=== PATIENT | female | born 1950 | race Caucasian/White ===

== ENCOUNTER 2023-04-07 08:53 | Outpatient (RCR) | payer MEDICARE, OTHER, SELFPAY | END 2023-04-07 23:59 | disposition home or self-care (01) | LOC: RPT 08:53 | PROVIDERS: ATTENDING PHYSICIAN Surgery Plastic and Reconstructive Surgery; FAMILY PHYSICIAN Internal Medicine | DX: Z48.817 Encounter for surgical aftercare following surgery on the skin and subcutaneous tissue (principal); R60.0 Localized edema; Z98.890 Other specified postprocedural states | CPT/HCPCS: 97140; 97162; 97535 ==

== ENCOUNTER 2023-05-12 10:13 | Outpatient (RCR) | payer MEDICARE, OTHER, SELFPAY | END 2023-05-12 23:59 | disposition home or self-care (01) | LOC: RPT 10:13 | PROVIDERS: ATTENDING PHYSICIAN Surgery Plastic and Reconstructive Surgery; FAMILY PHYSICIAN Internal Medicine | DX: R60.0 Localized edema (principal); Z73.6 Limitation of activities due to disability; Z98.890 Other specified postprocedural states | CPT/HCPCS: 97140; 97535 ==

== ENCOUNTER 2023-05-20 11:47 | Outpatient (RCR) | payer MEDICARE, OTHER, SELFPAY | END 2023-05-20 14:13 | disposition home or self-care (01) | LOC: RPT 11:47 | PROVIDERS: ATTENDING PHYSICIAN Surgery Plastic and Reconstructive Surgery; FAMILY PHYSICIAN Internal Medicine | DX: R60.0 Localized edema (principal); Z73.6 Limitation of activities due to disability; Z98.890 Other specified postprocedural states | CPT/HCPCS: 97140 ==

== ENCOUNTER → 2023-06-11 09:54 | Outpatient (REF) | payer MEDICARE, OTHER, SELFPAY | LOC: WDC 09:54 | PROVIDERS: ATTENDING PHYSICIAN Internal Medicine | DX: N63.12 Unspecified lump in the right breast, upper inner quadrant (principal); Z98.890 Other specified postprocedural states | CPT/HCPCS: 76642; 77062; 77066 ==

== ENCOUNTER 2023-07-10 09:46 | Outpatient (RCR) | payer MEDICARE, OTHER, SELFPAY | END 2023-07-10 23:59 | disposition home or self-care (01) | LOC: RPT 09:46 | PROVIDERS: ATTENDING PHYSICIAN Orthopaedic Surgery; FAMILY PHYSICIAN Internal Medicine | DX: M47.816 Spondylosis without myelopathy or radiculopathy, lumbar region (principal); Z73.6 Limitation of activities due to disability; R26.2 Difficulty in walking, not elsewhere classified; M62.81 Muscle weakness (generalized); Z96.641 Presence of right artificial hip joint | CPT/HCPCS: 97010; 97110; 97140; 97162; 97530 ==

== ENCOUNTER 2023-07-28 10:53 | Outpatient (RCR) | payer MEDICARE, OTHER, SELFPAY | END 2023-07-28 23:59 | disposition home or self-care (01) | LOC: RPT 10:53 | PROVIDERS: ATTENDING PHYSICIAN Orthopaedic Surgery; FAMILY PHYSICIAN Internal Medicine | DX: M47.816 Spondylosis without myelopathy or radiculopathy, lumbar region (principal); Z73.6 Limitation of activities due to disability; R26.2 Difficulty in walking, not elsewhere classified; M62.81 Muscle weakness (generalized); Z96.641 Presence of right artificial hip joint | CPT/HCPCS: 97110; 97112; 97530 ==

== ENCOUNTER 2023-08-12 09:58 | Outpatient (RCR) | payer MEDICARE, OTHER, SELFPAY | END 2023-08-12 10:54 | disposition home or self-care (01) | LOC: RPT 09:58 | PROVIDERS: ATTENDING PHYSICIAN Orthopaedic Surgery; FAMILY PHYSICIAN Internal Medicine | DX: M47.816 Spondylosis without myelopathy or radiculopathy, lumbar region (principal); Z73.6 Limitation of activities due to disability; R26.2 Difficulty in walking, not elsewhere classified; M62.81 Muscle weakness (generalized); Z96.641 Presence of right artificial hip joint | CPT/HCPCS: 97110; 97530 ==

== ENCOUNTER → 2024-03-23 08:35 | Outpatient (REF) | payer MEDICARE, OTHER, SELFPAY | LOC: HWRAD 08:35 | PROVIDERS: ATTENDING PHYSICIAN Family Medicine | DX: R10.13 Epigastric pain (principal) | CPT/HCPCS: 76700 ==

== ENCOUNTER → 2024-04-07 10:08 | Outpatient (REF) | payer MEDICARE, OTHER, SELFPAY | LOC: RCS 10:08 | PROVIDERS: ATTENDING PHYSICIAN Family Medicine; REFERRING PHYSICIAN Student in an Organized Health Care Education/Training Program | DX: R94.31 Abnormal electrocardiogram [ECG] [EKG] (principal); I44.0 Atrioventricular block, first degree | CPT/HCPCS: 93017 ==

== ENCOUNTER 2024-04-12 06:20 | Day surgery (SDC) | payer MEDICARE, OTHER, SELFPAY | END 2024-04-12 11:01 | disposition home or self-care (01) | LOC: GI 06:20 | PROVIDERS: ATTENDING PHYSICIAN Internal Medicine Gastroenterology | DX: K29.60 Other gastritis without bleeding (principal); K29.70 Gastritis, unspecified, without bleeding; R13.10 Dysphagia, unspecified; R12 Heartburn; R14.0 Abdominal distension (gaseous) | CPT/HCPCS: 43239; 88305; 88342 ==

== ENCOUNTER → 2024-06-02 15:22 | Outpatient (REF) | payer MEDICARE, OTHER, SELFPAY | LOC: RAD 15:22 | PROVIDERS: ATTENDING PHYSICIAN Student in an Organized Health Care Education/Training Program; FAMILY PHYSICIAN Family Medicine | DX: R00.2 Palpitations (principal) | CPT/HCPCS: 75571 ==

== ENCOUNTER → 2024-07-14 14:13 | Outpatient (REF) | payer MEDICARE, OTHER, SELFPAY | LOC: WDC 14:13 | PROVIDERS: ATTENDING PHYSICIAN Obstetrics & Gynecology Gynecology; FAMILY PHYSICIAN Family Medicine | DX: Z12.31 Encounter for screening mammogram for malignant neoplasm of breast (principal); M85.89 Other specified disorders of bone density and structure, multiple sites; M81.0 Age-related osteoporosis without current pathological fracture | CPT/HCPCS: 77063; 77067 ==

== ENCOUNTER 2024-08-10 10:49 | Outpatient (RCR) | payer MEDICARE, OTHER, SELFPAY | END 2024-08-10 23:59 | disposition home or self-care (01) | LOC: RPT 10:49 | PROVIDERS: ATTENDING PHYSICIAN Family Medicine | DX: M19.011 Primary osteoarthritis, right shoulder (principal); Z73.6 Limitation of activities due to disability; M62.81 Muscle weakness (generalized) | CPT/HCPCS: 97010; 97110; 97112; 97140; 97161 ==

== ENCOUNTER → 2024-09-17 08:53 | Outpatient (REF) | payer MEDICARE, OTHER, SELFPAY | LOC: PAVMRI 08:53 | PROVIDERS: ATTENDING PHYSICIAN Specialist; FAMILY PHYSICIAN Family Medicine | DX: M25.561 Pain in right knee (principal) | CPT/HCPCS: 73721 ==

== ENCOUNTER 2024-10-29 17:25 | Inpatient (IN) | payer MEDICARE, OTHER, SELFPAY ==
[2024-10-29] VITALS (7 sets, daily range): BP systolic 120–144; BP diastolic 62–82; BMI 22.4; BMI 22.8
[2024-10-29 12:55] LABS: Hematocrit 23.7 % (37.0-47.0); Hemoglobin 8.0 g/dL (12.0-16.0); Mean Corp Hgb Conc. 33.8 g/dL (33.0-37.0); Mean Corpuscular Volume 90.5 fL (81.0-99.0); Nucleated Red Blood Cells % 0 %; Platelet Count 274 10^3/uL (130-400); Red Cell Dist. Width 13.2 % (11.5-14.5)
[2024-10-29 13:05] LABS: INR 1.04; PT 13.9 Sec (11.4-14.6)
[2024-10-29 13:06] LABS: APTT 31.2 Sec (23.4-35.0)
[2024-10-29 13:11] LABS: ALT (SGPT) 28 U/L (0-35); AST (SGOT) 31 U/L (14-36); Albumin 3.8 g/dl (3.5-5.0); Alkaline Phosphatase 48 U/L (38-126); Blood Urea Nitrogen 22 mg/dl (7-17); Calcium 8.9 mg/dl (8.4-10.2); Carbon Dioxide 25 mmol/L (22-30); Chloride 108 mmol/L (98-107); Glucose 118 mg/dl (70-99); Potassium 4.3 mmol/L (3.5-5.1); Sodium 141 mmol/L (135-145); Total Protein 6.3 g/dl (6.3-8.2); eGFR 53.39
--- NOTE | 2024-10-29 16:44 | ED.GENMED ---
History of Present Illness
General
Chief Complaint: Rectal Bleeding
Time Seen by Provider: 10/29/24 16:18
History of Present Illness
History of Present Illness:
74-year-old female presents to the emergency department for evaluation of black stool for the past several days. She notes that she is 5 days status post external total shoulder replacement performed at this hospital. Notes that she is on baby
aspirin for clot prevention postsurgically. She denies any recent NSAID use other than a baby aspirin and is not on any blood thinners. Has a prior history of recurrent stomach ulcers, follows with [facility] gastroenterology. Not
currently on any PPIs
Past History
Past History
ED Past Medical History: GERD and HTN
ED Past Surgical History: Orthopedic
Social History
Tobacco: Non-smoker
Alcohol: None
Drug: None
Review of Systems
Review of Systems
Allergies reviewed?: Yes
All Other Systems: ROS reviewed and negative except as documented in HPI and ROS
Phy Exam
Physical Exam
Physical Exam:
GEN: Well appearing, NAD, WDWN
HEENT: Oral mucosa moist, no scleral icterus
Cardiac: Regular rate
Lung: No respiratory distress, no tachypnea
MSK: No gross deformity or injuries
Skin: Good color, no pallor or jaundice, no rashes
Neuro: AO x3, moves all extremities freely
Psych: Calm, cooperative
Course
Orders/Labs/Results
Orders:
Orders
10/29/24 12:42
Type And Crossmatch [Type+Screen] Urgent
Complete Blood Count/With Diff Urgent
Comprehensive Metabolic Panel Urgent
PTT Urgent
Prothrombin Time Urgent
10/29/24 16:19
Pantoprazole [Protonix IV] 80 mg IV NOW STA
10/29/24 16:30
Pantoprazole 80 mg/100 ml Nss [Protonix] 80 mg in 100 ml IV Q10H
10/29/24 16:51
ABO2 Urgent
BBK Wristband Number:
Associate notified that ABO2 has been ordered: [id number]
Date: 10/29/24
Time: 13:18
Form Grader Operator ID: [id number]
10/29/24 17:04
Admit/Transfer Patient As Directed
Co-Sign Provider:
Level of Care: Inpatient admission
Assign to:: Telemetry
Physician / Group: [email or web address]
Diagnosis: acute UGIB, ACBLA
Reason for Telemetry: Other
Other Reason for Telemetry: acute UGIB, ACBLA
Date to Stop Telemetry: 10/31/24
Time to Stop Telemetry: 11:00
Reason for Hospitalization: acute UGIB, ACBLA
Expected length of stay greater than two midnights?: Yes
ELOS- Estimated Length of Stay in days: 3
I certify the patient meets the requirements for IP care: Yes
10/29/24 17:06
Code Status As Directed
Resuscitation Status: Full Code
10/31/24 11:00
DC Protocol for Telemetry ONCE
Abnormal Lab Results
10/29/24
12:42
RBC 2.62 L 10^6/uL
(4.20-5.40)
Hgb 8.0 L g/dL
(12.0-16.0)
Hct 23.7 L %
(37.0-47.0)
Absolute Monos (auto) 0.7 H 10^3/uL
(0.1-0.6)
Chloride 108 H mmol/L
(98-107)
BUN 22 H mg/dl
(7-17)
Creatinine 1.1 H mg/dL
(0.6-1.0)
Glucose 118 H mg/dl
(70-99)
10/29/24 12:42
10/29/24 12:42
Vital Signs
Initial and Last Documented VS:
Initial Vital Signs
Temp Pulse Resp BP Pulse Ox
98.1 F 88 20 122/78 100
10/29/24 12:31 10/29/24 12:31 10/29/24 12:31 10/29/24 12:31 10/29/24 12:31
Last Documented Vital Signs
Temp Pulse Resp BP Pulse Ox
98.1 F 90 19 122/62 100
10/29/24 12:31 10/29/24 20:30 10/29/24 17:03 10/29/24 20:00 10/29/24 16:56
MDM/Problems Addressed
MDM/Problems Addressed:
Patient will be admitted to the hospital given significant drop in hemoglobin and potential need for blood transfusion. She will likely need GI intervention to evaluate for source of upper GI bleeding. No indication for imaging at this point
*Pulse Oximetry
SaO2: 100
Oxygen Mode of Delivery: Room air
Patient hypoxic: no
*Critical Care Note
Total Time (30-74mins, 75-104mins- exclusive of procedures): Not Applicable
ED Attending Note
-
Portions of this chart may have been created with voice recognition software.� Occasional wrong word or��sound alike� substitutions may have occurred due to the inherent limitations of voice recognition software.
Discharge Plan
Departure
Patient Disposition: Admit
Date of Disposition: 10/29/24
Time of Disposition: 16:46
Presentation/result/management discussed w/ accepting MD/DO: Hospitalist
Discharge Problem:
Acute upper GI bleed
Interventions
Interventions:
*Risk Screen - Suicide Last Done: 10/29/24 12:31
*General Assessment Last Done: 10/29/24 12:31
*Neglect/Abuse Screening Last Done: 10/29/24 20:42
*ED- Fall Risk Assessment Last Done: 10/29/24 16:54
*ED COVID-19 Vaccine History Last Done: 10/29/24 16:54
*Nursing Disposition Last Done: 10/29/24 20:42
RJ-Ikpqnx-Foluvgscqy Assessment Last Done: 10/29/24 16:54
ED- Cardiac Assessment Last Done: 10/29/24 16:54
ED- Pulmonary Assessment Last Done: 10/29/24 16:56
--- NOTE | 2024-10-29 16:50 | HPS.HSE ---
Family Physician
-
Family Physician: Love Aguero MD
Chief Complaint
-
black stool for last 5 days
History of Present Illness
HPI
74F HX GERD on famotidine and HTN, on babay ASA BID, vit E seen at ER
- evaluation of black stool for the past 5 days
- status post external total shoulder replacement performed at this hospital.
- on baby aspirin for clot prevention postsurgically.
- denies any recent NSAID use other than a baby aspirin and is not on any blood thinners.
Prior HX recurrent stomach ulcers, follows with [facility] gastroenterology.
Not currently on any PPIs but on H2B
Medical History
Past Medical History
Past Medical History: Reports HTN
Additional Past Medical History:
HX recurrent stomach ulcers, follows with [facility] gastroenterology.
Past Surgical History: Reports Orthopedic (xternal total shoulder replacement performed at )
Social History
Tobacco: Non-smoker
Alcohol: None
Drug: None
Family History
Family History: Not pertinent
Allergies / Home Medications
Allergies reflects when Allergies were last updated in [facility].
Home Medications with original date entered in [facility]
Allergy/Medication List:
Allergies
Allergy/AdvReac Type Severity Reaction Status Date / Time
No Known Allergies Allergy Verified 10/29/24 12:32
Home Medications
losartan 50 mg tablet 50 mg PO DAILY 01/16/23
Prevagen 1 tab PO DAILY 01/21/23
ascorbic acid (vitamin C) 1,000 mg tablet (Vitamin C) 500 mg PO DAILY 01/21/23
carica papaya (Papaya Enzyme tablet) 1 tab PO TID 01/21/23
cholecalciferol (vitamin D3) 125 mcg (5,000 unit) tablet (Vitamin D3) 125 mcg PO DAILY 01/21/23
famotidine 20 mg tablet (Pepcid) 20 mg PO HS 01/21/23
therapeutic multivitamin 1 tab PO DAILY 01/21/23
turmeric root extract 150 mg-cora root extract 25 mg chewable tablet 1 tab PO DAILY 01/21/23
vitamin E 268 mg (400 unit) capsule 268 mg PO DAILY 01/21/23
acetaminophen 325 mg tablet (Tylenol) 975 mg PO TID 10/29/24
aspirin 81 mg tablet 81 mg PO BID 10/29/24
cefadroxil 500 mg capsule 500 mg PO BID 10/29/24
Review of Systems
-
Constitutional: Reports No Symptoms
EENT: Reports No Symptoms
Respiratory: Reports No Symptoms
Cardiac: Reports No Symptoms
Abdomen/GI: Reports Black Stools (for last 5 days )
: Reports No Symptoms
Musculoskeletal: Reports No Symptoms
Skin: Reports No Symptoms
Neurological: Reports No Symptoms
Endocrine: Reports No Symptoms
Hematologic/Lymphatic: Reports No Symptoms
Psych: Reports No Symptoms
Physical Exam
Vital Signs
Vital Signs
Temp Pulse Resp BP Pulse Ox
98.1 F 88 20 122/78 100
10/29/24 12:31 10/29/24 12:31 10/29/24 12:31 10/29/24 12:31 10/29/24 16:45
Physical Exam
General: Well Developed, Well Nourished and No Apparent Distress
HEENT: NormoCephalic, Moist mucous membranes and Atraumatic
Respiratory: Clear
Cardiac: S1/S2 and Regular Rhythm; No Murmur or Rub
GI: Soft, Non Tender, Non Distended and Normal Bowel Sounds; No Organomegaly
Rectal: Deferred by Provider
Musculoskeletal: No Clubbing, No Cyanosis and No Edema
Skin: No Rash
Neuro: Nonfocal/grossly intact
Laboratory Results
-
10/29/24 12:42
10/29/24 12:42
Laboratory Results
PT 13.9 Sec (11.4-14.6) 10/29/24 12:42
INR 1.04 10/29/24 12:42
APTT 31.2 Sec (23.4-35.0) 10/29/24 12:42
Total Bilirubin 0.6 mg/dl (0.2-1.3) 10/29/24 12:42
AST 31 U/L (14-36) 10/29/24 12:42
ALT 28 U/L (0-35) 10/29/24 12:42
Alkaline Phosphatase 48 U/L (38-126) 10/29/24 12:42
Data Reviewed
-
Lab Data: Labs Reviewed by me
Impression/Plan
-
Vital Signs
Temp Pulse Resp BP Pulse Ox
98.1 F 88 20 122/78 100
10/29/24 12:31 10/29/24 12:31 10/29/24 12:31 10/29/24 12:31 10/29/24 16:45
Laboratory Tests
01/07/23 10/29/24 10/29/24
08:12 09:43 12:42
Hgb 13.8 8.1 L 8.0 L
MCV 90.5
Plt Count 294 274
INR 1.04
BUN 22 H
Creatinine 1.1 H
eGFR 53.39
Total Bilirubin 0.6
AST 31
ALT 28
Alkaline Phosphatase 48
04/12/24 EGD
Normal esophagus.
- Gastric erosions with no bleeding and no stigmata of recent bleeding. Biopsied.
- Normal stomach. Biopsied.
- Normal examined duodenum. Biopsied.
- Biopsies were taken with a cold forceps for evaluation of eosinophilic esophagitis.
NO PRIOR hospitalist admission:
ASSESSMENT & PLAN
Acute UGIB with black colored stool
Asso. ACBLA but stable last 2 Hgb
Stable HD state
04/12/24 Gastric erosions with no bleeding and no stigmata of recent bleeding.
Also DDX eosinophilic esophagitis was entertained
Known HX recurrent
Known to [facility]
- Hold ASA and Vit E
- T & C
- Blood consent
- NPO and IVF
- PPI gtt
- Trend H & H
- GI consulted
S/p external total shoulder replacement @ [facility] ( Dr Harley
- c/w mao op PO ABx cefadroxil
- Hold DVT Px Baby ASA BID
HX HTN
- no anti HTN Meds are listed
DVT Px: SCD
Full Code:
IP TLM
[2024-10-29] MEDS: PROTONIX 100 IV ×2 (16:58→22:58)
[2024-10-29] MEDS: PROTONIX IV 80 MG IV (16:58)
--- NOTE | 2024-10-29 21:30 | PTCARENOTE ---
Pt. admitted from [facility] AAO x 3, vs stable, call lester within reach.
[2024-10-29 21:43] LABS: Hematocrit 21.8 % (37.0-47.0); Hemoglobin 7.4 g/dL (12.0-16.0)
[2024-10-29] MEDS: TYLENOL PO (22:38)
[2024-10-29] MEDS: KEFLEX 250 MG PO (22:58)
[2024-10-30] VITALS (7 sets, daily range): BP systolic 111–154; BP diastolic 53–77; PULSE 83–108
[2024-10-30] MEDS: PROTONIX 100 IV ×2 (01:12→08:45)
[2024-10-30 04:15] LABS: Hematocrit 21.7 % (37.0-47.0); Hemoglobin 7.5 g/dL (12.0-16.0)
[2024-10-30] MEDS: KEFLEX 250 MG PO ×4 (04:47→21:22)
[2024-10-30] MEDS: TYLENOL 975 MG PO ×3 (08:45→21:22)
[2024-10-30 09:02] LABS: Hematocrit 23.9 % (37.0-47.0); Hemoglobin 8.3 g/dL (12.0-16.0); Mean Corp Hgb Conc. 34.7 g/dL (33.0-37.0); Mean Corpuscular Volume 89.8 fL (81.0-99.0); Platelet Count 256 10^3/uL (130-400); Red Cell Dist. Width 13.1 % (11.5-14.5)
[2024-10-30 09:31] LABS: ALT (SGPT) 29 U/L (0-35); AST (SGOT) 30 U/L (14-36); Albumin 4.0 g/dl (3.5-5.0); Alkaline Phosphatase 58 U/L (38-126); Blood Urea Nitrogen 16 mg/dl (7-17); Calcium 9.2 mg/dl (8.4-10.2); Carbon Dioxide 28 mmol/L (22-30); Chloride 108 mmol/L (98-107); Estimated Creatinine Clearance 73 ml/min; Glucose 107 mg/dl (70-99); Potassium 3.7 mmol/L (3.5-5.1); Sodium 141 mmol/L (135-145); Total Protein 6.9 g/dl (6.3-8.2); eGFR > 60.00
--- NOTE | 2024-10-30 12:18 | CON.GI ---
Addendum entered and electronically signed by Nayeli Katz Do, MD 10/30/24 16:04:
I saw and evaluated the patient. I reviewed the resident�s note and agree with findings and plan as documented in the resident�s note.
Adeline is a 74yo W with h/o HTN and GERD who presents for melena x2. She had R shoulder surgery at [facility] 10/25. Post op was on nsaid and oxycodone. This caused epigastric pain. She has remote h/o gastritis in the past and nsaid intolerance.
Vitals stable, exam NTTP, NABS. No guarding rebound. Labs reviewed Hbg 7.4 down from normal per pt baseline prior to shoulder surgery. EGD done 03/[address] Paul gastric erosions.
Impression
- Melena x2 and anemia
ddx is PUD, erosions or ectasia
- Recent R shoulder surgery 10/25
may contribute to post op anemia
- NSAID use
- GERD not on PPI prior to admission
- HTN
- Diverticulosis
- Hemorrhoids
Recommendations
- FLD now
- NPO at OR for EGD tomorrow
- C/w PPI IV BID
- Serial H/H
- Avoid all nsaids in future
Will follow with you
Original Note:
Consultation
-
Date/Time Consultation Requested: 10/29/24
Date/Time Consultation Performed: 10/30/2024
Medical History
Chief Complaint / HPI
Chief Complaint: Melena
History of Present Illness:
Patient is a 74-year-old female with past medical history of hypertension, dyspepsia and recent right shoulder surgery on 10/25/2024. She was taking baby aspirin after her shoulder surgery, she had taken 3 doses of aspirin and then on Thursday she
had 2 episodes of melena. Initially she thought it was part of her recovery process but then she felt tired and fatigued and realized that she was bleeding. She went to her primary care physician office which checked her hemoglobin in the office
and it was 8 and referred her to the ER. In the ER, her hemoglobin was 8 but then repeat hemoglobin was 7.4 in the evening and she was called back to be admitted to the hospital for melena.
She was on Tylenol for pain and had 2 oxycodone tablets the day before but otherwise she is not using any NSAIDs. She denies any diarrhea but is on MiraLAX regimen for constipation. She denies any reflux, abdominal pain, heartburn or weight loss.
Past Medical History
Past Medical History: HTN and Other (Dyspepsia)
Past Surgical History: Orthopedic (Total shoulder replacement on 10/25/2024)
Social History
Tobacco: Non-Smoker
Alcohol: None
Drug: None
Personal:
Living: With Family
Employment: Retired
Family History
Family History: Reviewed & Not Pertinent (History of colon cancer, stomach cancer, IBD)
Allergies / Home Medications
Allergy/AdvReac Type Severity Reaction Status Date / Time
No Known Allergies Allergy Verified 10/29/24 12:32
�Medication �Instructions �Recorded
losartan 50 mg tablet 50 mg PO DAILY 01/16/23
Prevagen 1 tab PO DAILY 01/21/23
ascorbic acid (vitamin C) 1,000 mg 500 mg PO DAILY 01/21/23
tablet (Vitamin C)
carica papaya (Papaya Enzyme 1 tab PO TID 01/21/23
tablet)
cholecalciferol (vitamin D3) 125 125 mcg PO DAILY 01/21/23
mcg (5,000 unit) tablet (Vitamin
D3)
famotidine 20 mg tablet (Pepcid) 20 mg PO HS 01/21/23
therapeutic multivitamin 1 tab PO DAILY 01/21/23
turmeric root extract 150 1 tab PO DAILY 01/21/23
mg-cora root extract 25 mg
chewable tablet
vitamin E 268 mg (400 unit) capsule 268 mg PO DAILY 01/21/23
acetaminophen 325 mg tablet 975 mg PO TID 10/29/24
(Tylenol)
aspirin 81 mg tablet 81 mg PO BID 10/29/24
cefadroxil 500 mg capsule 500 mg PO BID 10/29/24
Review of Systems
-
All other systems: A 12 pt ROS was Negative except as stated above in HPI
Vital Signs
Temp Pulse Resp BP Pulse Ox
98.3 F 76 16 122/69 97
10/30/24 11:00 10/30/24 11:00 10/30/24 11:00 10/30/24 11:00 10/30/24 11:00
Physical Exam
Exam
General: Well Developed, Well Nourished and No Apparent Distress
HEENT: Anicteric and Moist Mucous Membranes
Respiratory: Clear; Negative Wheezes, Rales or Rhonchi
Cardiac: S1/S2 and Regular Rhythm
GI: Soft, Non Tender, Non Distended, Normal Bowel Sounds and Other (No hernias or abdominal scars)
Musculoskeletal: No Clubbing and No Cyanosis
Neuro: Oriented
Psych: Calm
Results
WBC 7.4 10^3/uL (4.8-10.8) 10/30/24 08:56
Hgb 8.3 g/dL (12.0-16.0) L 10/30/24 08:56
Hct 23.9 % (37.0-47.0) L 10/30/24 08:56
MCV 89.8 fL (81.0-99.0) 10/30/24 08:56
Plt Count 256 10^3/uL (130-400) 10/30/24 08:56
Absolute Neuts (auto) 6.0 10^3/uL (1.4-6.5) 10/29/24 12:42
PT 13.9 Sec (11.4-14.6) 10/29/24 12:42
INR 1.04 10/29/24 12:42
APTT 31.2 Sec (23.4-35.0) 10/29/24 12:42
Sodium 141 mmol/L (135-145) 10/30/24 08:56
Potassium 3.7 mmol/L (3.5-5.1) 10/30/24 08:56
Chloride 108 mmol/L (98-107) H 10/30/24 08:56
Carbon Dioxide 28 mmol/L (22-30) 10/30/24 08:56
BUN 16 mg/dl (7-17) 10/30/24 08:56
Creatinine 0.7 mg/dL (0.6-1.0) 10/30/24 08:56
Calcium 9.2 mg/dl (8.4-10.2) 10/30/24 08:56
Total Bilirubin 0.9 mg/dl (0.2-1.3) 10/30/24 08:56
AST 30 U/L (14-36) 10/30/24 08:56
ALT 29 U/L (0-35) 10/30/24 08:56
Alkaline Phosphatase 58 U/L (38-126) 10/30/24 08:56
Diagnostic Image Results:
CT July 2022� which showed diverticuli in the transverse colon and likely diverticulitis. Differential includes epiploic appendagitis. Mild hepatomegaly with multiple hypodense lesions likely tiny cysts. Mild wall thickening of the esophagus.
Small hiatal hernia versus esophagitis.
Ultrasound abdomen May 2022 slightly increased echogenicity in the liver compatible with hepatocellular disease most likely mild fatty infiltration of the liver.
Prior GI Procedures:
GI WORK UP:
Upper endoscopy May 2018 Dr. Islas done for epigastric pain and reflux showed normal esophagus, regular Z-line, mild inflammation of stomach, normal duodenum. Pathology showed gastropathy, normal small bowel, normal esophagus.
Upper endoscopy March 2018 done for dyspepsia and heartburn showed normal esophagus, regular Z-line, moderate inflammation in the stomach, gastric ulcers 3 mm, duodenum normal. Pathology showed reactive gastropathy, normal duodenum.
Colonoscopy 2013 Dr. Islas showed diverticulosis, internal hemorrhoids.
Colonoscopy September 2022 normal terminal ileum, diverticuli in the sigmoid, descending colon, splenic flexure, transverse colon and hepatic flexure. Hemorrhoids large and grade 1. Recommend repeat colonoscopy in 10 years.
Upper endoscopy September 2022 esophagus normal biopsies taken. Venous bleb seen. Small hiatal hernia. Nodules in the stomach biopsies taken. Stomach and duodenum normal. Pathology showed reactive gastropathy, chronic inflammation esophagus with no
eosinophils.
Assessment / Plan
-
Impression
Melena and anemia
Dyspepsia
Hypertension
Recent right shoulder replacement-was taking aspirin
Recommendations
Full liquid diet
Protonix 40 mg IV twice daily
N.p.o. at midnight
Monitor stool output
EGD tomorrow
-
-
Thank you for consultation and allowing me to participate in the patient's care. Please call the insulation blower GI physician during the after hours with any questions or concerns.
--- NOTE | 2024-10-30 13:56 | W.PN.HOSP.TC ---
Today's Communication/Plan
-
trend cbc
ppi ggt
GI consulted
anticipate EGD tomorrow; CLD today if GI clears and anticipate NPO after MN
Assessment / Plan
Assessment / Plan
Physical Exam
General: Well Developed, Well Nourished and No Apparent Distress
HEENT: NormoCephalic, Moist mucous membranes and Atraumatic
Respiratory: Clear
Cardiac: S1/S2 and Regular Rhythm; No Murmur or Rub
GI: Soft, Non Tender, Non Distended and Normal Bowel Sounds; No Organomegaly
Rectal: Deferred by Provider
Musculoskeletal: No Clubbing, No Cyanosis and No Edema
Skin: No Rash
Neuro: Nonfocal/grossly intact
Acute Blood Loss Anemia
GI bleed, suspected upper
04/12/24 Gastric erosions with no bleeding and no stigmata of recent bleeding.
Also DDX eosinophilic esophagitis was entertained
Known HX recurrent
-baseline hgb 13 from prior to surgery
- Hold ASA and Vit E
- T & C
-CLD if no intervention today
-Trend CBC
-GI consulted - anticipate EGD tomorrow
- PPI gtt
-hold antihypertensives
S/p external total shoulder replacement @ [facility] ( Dr Harley)
- c/w mao op PO ABx cefadroxil
- Hold DVT Px Baby ASA BID due to GI bleed
HX HTN
- hold antihypertensives
DVT Px: SCD
Anticipated Discharge: > 48 hours
Subjective/Interval History
-
Date of Service: October 30, 2024
no bms
Objective Data
-
Labs:
Laboratory Results
10/30/24 10/30/24
03:48 08:56
WBC 7.4
Hgb 7.5 L 8.3 L
Hct 21.7 L 23.9 L
Plt Count 256
Sodium 141
Potassium 3.7
Chloride 108 H
Carbon Dioxide 28
BUN 16
Creatinine 0.7
Glucose 107 H
Calcium 9.2
Total Bilirubin 0.9
AST 30
ALT 29
Alkaline Phosphatase 58
Vital Signs:
Vital Signs
Temp Pulse Resp BP Pulse Ox
98.3 F 76 16 122/69 97
10/30/24 11:00 10/30/24 11:00 10/30/24 11:00 10/30/24 11:00 10/30/24 11:00
I&O
10/29/24 10/30/24 10/31/24
06:59 06:59 06:59
Intake Total 120 / 120
Balance 120 / 120
Review of Systems
-
History Source: Patient
All other systems: Not reviewed unless documented
Data Reviewed
-
Labs: Labs Reviewed by me
[2024-10-30] MEDS: PROTONIX IV (14:38)
--- NOTE | 2024-10-30 16:19 | CM ---
medical center manager reviewed patient's chart and met with patient and patient states she lives with her spouse in 2 story home with bed and bathroom on the 2nd floor patient is independent with adl's and ambulation, no dme, patient drives, home when
stable, no needs.
PCP: Love Aguero
Pharmacy: [facility] in [place].
[2024-10-30] MEDS: NSS (PRESERVATIVE FREE) 10 ML IV (21:19)
[2024-10-30] MEDS: PROTONIX IV 40 MG IV (21:20)
[2024-10-30] MEDS: FLUSH (NSS) 1 FLUSH IV (21:21)
[2024-10-31] VITALS (10 sets, daily range): BP systolic 18–136; BP diastolic 62–75
[2024-10-31] MEDS: KEFLEX 250 MG PO ×3 (04:58→15:15)
[2024-10-31] MEDS: NSS (PRESERVATIVE FREE) 10 ML IV (07:39)
[2024-10-31] MEDS: PROTONIX IV 40 MG IV (07:39)
[2024-10-31] MEDS: TYLENOL 975 MG PO ×2 (07:39→15:15)
[2024-10-31 08:59] LABS: Hematocrit 23.8 % (37.0-47.0); Hemoglobin 8.0 g/dL (12.0-16.0); Mean Corp Hgb Conc. 33.6 g/dL (33.0-37.0); Mean Corpuscular Volume 89.1 fL (81.0-99.0); Platelet Count 276 10^3/uL (130-400); Red Cell Dist. Width 13.1 % (11.5-14.5)
[2024-10-31 09:23] LABS: ALT (SGPT) 23 U/L (0-35); AST (SGOT) 26 U/L (14-36); Albumin 3.7 g/dl (3.5-5.0); Alkaline Phosphatase 58 U/L (38-126); Blood Urea Nitrogen 14 mg/dl (7-17); Calcium 9.0 mg/dl (8.4-10.2); Carbon Dioxide 27 mmol/L (22-30); Chloride 107 mmol/L (98-107); Estimated Creatinine Clearance 64 ml/min; Glucose 101 mg/dl (70-99); Potassium 3.8 mmol/L (3.5-5.1); Sodium 140 mmol/L (135-145); Total Protein 6.2 g/dl (6.3-8.2); eGFR > 60.00
--- NOTE | 2024-10-31 09:46 | W.PN.HOSP.TC ---
Addendum entered and electronically signed by Geovanny Garcia MD 10/31/24 16:20:
Addendum
Patient underwent upper EGD. Nonbleeding ulcer. Diet was resumed and she tolerated well. Discussed with GI, okay to go home.
Discharge instructions given to the patient.
She was ambulating independently in her room.
Patient wanted to go home and did not want to stay for further monitoring.
Total discharge time spent to see the patient on the floor, examine the patient, review data and lab results, discuss discharge plan with patient, nursing staff around 65 minutes.
Original Note:
Today's Communication/Plan
-
NPO for EGD
IV PPI BID
Assessment / Plan
Assessment / Plan
Physical Exam
General: Well Developed, Well Nourished and No Apparent Distress
HEENT: NormoCephalic, Moist mucous membranes and Atraumatic
Respiratory: Clear
Cardiac: S1/S2 and Regular Rhythm; No Murmur or Rub
GI: Soft, Non Tender, Non Distended and Normal Bowel Sounds; No Organomegaly
Rectal: Deferred by Provider
Musculoskeletal: No Clubbing, No Cyanosis and No Edema
Skin: No Rash
Neuro: Nonfocal/grossly intact
Acute Blood Loss Anemia
GI bleed, suspected upper
04/12/24 Gastric erosions with no bleeding and no stigmata of recent bleeding.
Also DDX eosinophilic esophagitis was entertained
Known HX recurrent
-baseline hgb 13 from prior to surgery
- Hold ASA and Vit E
- T & C
-CLD if no intervention today
-Trend CBC
-GI consulted - anticipate EGD
- PPI IV BID
-hold antihypertensives
S/p external total shoulder replacement @ [facility] ( Dr Harley)
- c/w mao op PO ABx cefadroxil
- Hold DVT Px Baby ASA BID due to GI bleed
HX HTN
- hold antihypertensives
DVT Px: SCD
Total time spent to see the patient on the floor, examine the patient, review data and lab results, discuss treatment plan with patient, nursing staff around 55 minutes.
Anticipated Discharge: Within 24 hours
Subjective/Interval History
-
Date of Service: October 31, 2024
Objective Data
-
Labs:
Laboratory Results
10/31/24
08:12
WBC 6.1
Hgb 8.0 L
Hct 23.8 L
Plt Count 276
Sodium 140
Potassium 3.8
Chloride 107
Carbon Dioxide 27
BUN 14
Creatinine 0.8
Glucose 101 H
Calcium 9.0
Total Bilirubin 0.8
AST 26
ALT 23
Alkaline Phosphatase 58
Vital Signs:
Vital Signs
Temp Pulse Resp BP Pulse Ox
98.3 F 73 18 122/75 99
10/31/24 07:00 10/31/24 07:00 10/31/24 07:00 10/31/24 07:00 10/31/24 07:00
I&O
10/30/24 10/31/24 11/01/24
06:59 06:59 06:59
Intake Total 340 / 340
Balance 340 / 340
--- NOTE | 2024-10-31 16:16 | W.DCSUMMARY ---
Discharge Summary
Discharge Data
Date of Admission: 10/29/24
Date of Discharge: 10/31/24
-
Pending Results: No
Hospital Course
74 years old female presented with melena. Patient reported history of right shoulder surgery. She was a placed on nonsteroidal anti-inflammatory drugs and oxycodone. She started to have epigastric pain. Patient reported history of gastritis in
the past. Hemoglobin on admission 7.4. No abdominal tenderness. No hypotension or hemodynamic instability. Patient was evaluated by apprentice. Patient underwent upper endoscopic evaluation. EGD showed nonbleeding gastric ulcer. GI
doctor recommended PPI twice daily for 3 months then daily thereafter and to repeat EGD in 3 months. Diet was resumed. Patient tolerated diet well. Hemoglobin remained stable around 8 upon discharge. Patient remained hemodynamically stable.
Patient was discharged home in a stable condition.
Discharge Plan
-
Patient Disposition: Home (Routine Discharge)
Discharge Diagnosis/Procedures: Melena s/p EGD that showed One non-bleeding cratered gastric ulcer.
Gastroenterology Recommended Protonix twice daily for 3 months then daily thereafter, repeat EGD in 3 months to ascertain healing, follow-up with Dr. Paul.
Condition: Good
Diet: As tolerated
Referrals:
Severino Paul MD [Active, Gastroenterology]
Referral Note: 4-6 wks for post PUD anemia
Love Aguero MD [Family Provider, Family Practice] - in one to two weeks
Prescriptions:
New
pantoprazole 40 mg Tablet,Delayed Release (Dr/Ec)
40 mg PO BID Qty: 60 2RF
Continued
losartan 50 mg Tablet
50 mg PO DAILY
ascorbic acid (vitamin C) [Vitamin C] 1,000 mg Tablet
500 mg PO DAILY
cholecalciferol (vitamin D3) [Vitamin D3] 125 mcg (5,000 unit) Tablet
125 mcg PO DAILY
vitamin E 268 mg (400 unit) Capsule
268 mg PO DAILY
Papaya Enzyme Tablet
1 tab PO TID
therapeutic multivitamin Tablet
1 tab PO DAILY
turmeric root-cora root ext 150-25 mg Tablet,Chewable
1 tab PO DAILY
Prevagen
1 tab PO DAILY
acetaminophen [Tylenol] 325 mg Tablet
975 mg PO TID
cefadroxil 500 mg Capsule
500 mg PO BID
Rx Instructions:
FOR 7 DAYS STARTING 10/25/24
aspirin 81 mg Tablet
81 mg PO BID
Discontinued
famotidine [Pepcid] 20 mg Tablet
20 mg PO HS
Discharge Orders:
Discharge Patient (As Directed); Ordered 10/31/24
Ordered By: Geovanny Garcia
Discharge Date and Time
Discharge Date/Time: 10/31/24 16:07
Print Language: LAO
== END 2024-10-31 16:07 | disposition home or self-care (01) | DRG 379 ==
LOC: 4 WEST ACU 17:25
PROVIDERS: Internal Medicine; Student in an Organized Health Care Education/Training Program; ADMITTING PHYSICIAN Internal Medicine; ATTENDING PHYSICIAN Internal Medicine; CONSULT PHYSICIAN Internal Medicine Gastroenterology; EMERGENCY PHYSICIAN Emergency Medicine; FAMILY PHYSICIAN Family Medicine
PROC: 0DB58ZX Excision of Esophagus, Via Natural or Artificial Opening Endoscopic, Diagnostic (ICD-10-PCS; 2024-10-31)
PROC: 0DB98ZX Excision of Duodenum, Via Natural or Artificial Opening Endoscopic, Diagnostic (ICD-10-PCS; 2024-10-31)
DX: K25.4 Chronic or unspecified gastric ulcer with hemorrhage (principal); K21.9 Gastro-esophageal reflux disease without esophagitis; I10 Essential (primary) hypertension; Z79.82 Long term (current) use of aspirin; D50.0 Iron deficiency anemia secondary to blood loss (chronic); K59.00 Constipation, unspecified; Z96.611 Presence of right artificial shoulder joint
CPT/HCPCS: 36415; 80053; 85014; 85018; 85025; 85027; 85610; 85730; 86850; 86900; 86901; 88305; 88342; 96365; 96366; 99284

== ENCOUNTER → 2024-12-10 09:51 | Outpatient (REF) | payer MEDICARE, OTHER, SELFPAY | LOC: MRI 3T 09:51 | PROVIDERS: ATTENDING PHYSICIAN Pain Medicine Interventional Pain Medicine; FAMILY PHYSICIAN Family Medicine | DX: M54.16 Radiculopathy, lumbar region (principal) | CPT/HCPCS: 72148 ==

== ENCOUNTER 2025-01-24 06:20 | Day surgery (SDC) | payer MEDICARE, OTHER, SELFPAY | END 2025-01-24 09:10 | disposition home or self-care (01) | LOC: GI 06:20 | PROVIDERS: ATTENDING PHYSICIAN Internal Medicine Gastroenterology | DX: K29.70 Gastritis, unspecified, without bleeding (principal); K31.89 Other diseases of stomach and duodenum; Z87.11 Personal history of peptic ulcer disease | CPT/HCPCS: 43239; 88305; 88342 ==